=== PATIENT | female | born 1980 | race African-American/Black ===

== ENCOUNTER 2016-11-11 02:08 | Inpatient (IN) | payer SELFPAY ==
[~2016-11-11] VITALS: Ht 171.4 cm; Wt 58.5 kg
[2016-11-11] MEDS ORDERED: ONDANSETRON HCL 4MG/2ML VIAL IV STA (02:18)
[2016-11-11] MEDS ORDERED: FAMOTIDINE 20MG/2ML VIAL IV STA (02:18)
[2016-11-11] MEDS ORDERED: MORPHINE SULFATE 4 MG/ML CPJ (NOT FOR IM USE) IV STA (02:18)
[2016-11-11] MEDS ORDERED: SODIUM CHLORIDE 0.9% 1,000 ML IV ONE ×2 (02:18→03:04)
[2016-11-11 02:47] LABS: BASOPHILS % 0.3 % (0.0-2.0); EOSINOPHILS % 2.7 % (0.0-5.0); HEMATOCRIT. 37.5 % (36.0-48.0); HEMOGLOBIN. 12.5 g/dL (12.0-16.0); LYMPHOCYTES % 32.8 % (20.0-50.0); MEAN CORPUSCULAR HEMOGLOBIN 29.9 pg (28.0-32.0); MEAN CORPUSCULAR VOLUME 89.4 fL (81.0-99.0); MEAN PLATELET VOLUME 8.2 fl (7.4-10.4); NEUTROPHILS % 60.2 % (40.0-76.0); PLATELET 322 x1000/uL (130-400); RED BLOOD CELL COUNT 4.19 mill/uL (4.2-5.4); RED CELL DISTRIBUTION WIDTH 13.3 % (11.6-14.6)
[2016-11-11 02:53] LABS: CHLORIDE 105 mEq/L (98-107)
[2016-11-11 02:55] LABS: HCG SCREEN NEGATIVE
[2016-11-11 03:02] LABS: CARBON DIOXIDE 23 mEq/L (21-32); ETHANOL BLOOD < 10 mg/dL
[2016-11-11] MEDS ORDERED: SODIUM CHLORIDE 0.9% 1000ML BAG (SEPSIS BOLUS) IV ONE ×2 (03:15→05:00)
[2016-11-11] MEDS ORDERED: METRONIDAZOLE 500 MG PREMIX 100 ML IV ONE (05:00)
[2016-11-11] MEDS ORDERED: LEVOFLOXACIN 750MG PREMIX 150 ML IV ONE (05:00)
[2016-11-11] MEDS ORDERED: DOCUSATE SODIUM 100MG CAPSULE PO PRN (08:45)
[2016-11-11] MEDS ORDERED: NA PHOS,M-B/NA PHOS,DI-BA ENEMA 118ML PR PRN (08:45)
[2016-11-11] MEDS ORDERED: DIPHENHYDRAMINE 50MG/ML VIAL IV PRN (08:45)
[2016-11-11] MEDS ORDERED: GUAIFENESIN 200MG/10ML SUGAR FREE UDC PO PRN (08:45)
[2016-11-11] MEDS ORDERED: MORPHINE SULFATE 2 MG/ML CPJ (NOT FOR IM USE) IV PRN (08:45)
[2016-11-11] MEDS ORDERED: IPRATROPIUM/ALBUTEROL 0.5-3(2.5)MG/3ML NEB INH PRN (08:45)
[2016-11-11] MEDS ORDERED: CLONIDINE 0.1MG TABLET PO PRN (08:45)
[2016-11-11] MEDS: ONDANSETRON HCL 4MG/2ML VIAL IV PRN ×2 (08:56→17:18)
[2016-11-11 08:58] LABS: CLARITY URINE CLEAR (CLEAR); COLOR URINE YELLOW (YELLOW); GLUCOSE URINE NEGATIVE (NEGATIVE); KETONES URINE NEGATIVE (NEGATIVE); LEUKOCYTE ESTERASE URINE 1+ (NEGATIVE); NITRITE URINE NEGATIVE (NEGATIVE); OCCULT BLOOD URINE 3+ (NEGATIVE); PH URINE 6.5 (4.5-8.0); PROTEIN URINE NEGATIVE (NEGATIVE); SPECIFIC GRAVITY URINE 1.017 (1.005-1.030)
[2016-11-11 09:20] LABS: *AMPHETAMINES SCREEN URINE NEGATIVE (NEGATIVE); *BARBITURATES SCREEN URINE NEGATIVE (NEGATIVE); *BENZODIAZEPINES SCREEN URINE NEGATIVE (NEGATIVE); *COCAINE SCREEN URINE NEGATIVE (NEGATIVE); CANNABINOID URINE SCREEN NEGATIVE (NEGATIVE); METHADONE URINE SCREEN NEGATIVE (NEGATIVE); PHENCYCLIDINE URINE SCREEN NEGATIVE (NEGATIVE)
[2016-11-11 09:25] LABS: OPIATES URINE SCREEN PRESUMTIVE POSITIVE (NEGATIVE)
[2016-11-11 10:30] VITALS: BP 99/64
[2016-11-11 10:31] VITALS: BP 99/64
[2016-11-11 12:00] VITALS: BP 93/58
[2016-11-11] MEDS ORDERED: PIPERACILLIN/TAZ 2.25G PREMIX 50 ML IV SCH (12:00)
[2016-11-11] MEDS ORDERED: MORPHINE SULFATE 4 MG/ML CPJ (NOT FOR IM USE) IV PRN (12:55)
[2016-11-11] MEDS: SODIUM CHLORIDE 0.45% 1,000 ML IV SCH (13:16)
[2016-11-11] MEDS: PIPERACILLIN/TAZ 3.375G PREMIX 50 ML IV SCH ×3 (13:16→21:17)
[2016-11-11 15:01] LABS: CREATINE KINASE 51 IU/L (26-192); TROPONIN I < 0.02 ng/mL (0.00-0.04)
[2016-11-11 16:00] VITALS: BP 103/72
[2016-11-11] MEDS: SODIUM CHLORIDE 0.9% INJ 3ML FLUSH IVF SCH ×2 (17:18→21:19)
[2016-11-11 20:00] VITALS: BP 97/68
[2016-11-11 22:58] LABS: CREATINE KINASE 47 IU/L (26-192); TROPONIN I < 0.02 ng/mL (0.00-0.04)
[2016-11-12] VITALS: BP 92/59
[2016-11-12] MEDS: SODIUM CHLORIDE 0.45% 1,000 ML IV SCH (00:20)
[2016-11-12 04:00] VITALS: BP 97/62
[2016-11-12] MEDS: SODIUM CHLORIDE 0.9% INJ 3ML FLUSH IVF SCH ×2 (06:32→14:41)
[2016-11-12] MEDS: PIPERACILLIN/TAZ 3.375G PREMIX 50 ML IV SCH ×2 (06:32→14:41)
[2016-11-12] MEDS: HYDROCODONE/ACETAMINOPHEN 5/325MG TABLET PO PRN ×2 (06:42→12:48)
[2016-11-12 07:28] LABS: BASOPHILS % 0.1 % (0.0-2.0); EOSINOPHILS % 3.9 % (0.0-5.0); HEMATOCRIT. 30.3 % (36.0-48.0); HEMOGLOBIN. 10.4 g/dL (12.0-16.0); LYMPHOCYTES % 32.9 % (20.0-50.0); MEAN CORPUSCULAR HEMOGLOBIN 30.3 pg (28.0-32.0); MEAN CORPUSCULAR VOLUME 88.2 fL (81.0-99.0); MEAN PLATELET VOLUME 8.5 fl (7.4-10.4); MONOCYTES % 5.1 % (2.0-8.0); PLATELET 210 x1000/uL (130-400); RED BLOOD CELL COUNT 3.43 mill/uL (4.2-5.4); RED CELL DISTRIBUTION WIDTH 13.5 % (11.6-14.6)
[2016-11-12 08:07] LABS: CARBON DIOXIDE 24 mEq/L (21-32); CHLORIDE 107 mEq/L (98-107)
[2016-11-12 08:11] VITALS: BP 113/72
[2016-11-12 12:00] VITALS: BP 100/67
[2016-11-12] MEDS ORDERED: METR250T PO (12:22)
[2016-11-12] MEDS ORDERED: LEVO500T2 PO (12:22)
[2016-11-12 14:51] VITALS: BP 100/67
[2016-11-16 13:09] LABS: ANTI-MYELOPEROXIDASE AB < 9.0 U/mL (0.0-9.0); ANTI-PROTEINASE 3 ABS < 3.5 U/mL (0.0-3.5)
[2016-11-17 10:12] LABS: ATYPICAL P-ANCA <1:20 titer (Neg:<1:20); CYTOPLASMIC C-ANCA <1:20 titer (Neg:<1:20); PERINUCLEAR P-ANCA <1:20 titer (Neg:<1:20)
== END 2016-11-12 15:45 | disposition home or self-care (01) | DRG 249 ==
LOC: ER 02:08 → 6EST 05:13 → ENRESERV 09:52
PROVIDERS: ADMIT Family Medicine; ATTEND Family Medicine
DX: K52.9 Noninfective gastroenteritis and colitis, unspecified (principal); E87.2 Acidosis; K59.00 Constipation, unspecified; N80.9 Endometriosis, unspecified; Z82.49 Family history of ischemic heart disease and other diseases of the circulatory system; Z88.8 Allergy status to other drugs, medicaments and biological substances
CPT/HCPCS: 36415; 74176; 80053; 80305; 81001; 82550; 83520; 83605; 83690; 84484; 84703; 85025; 86256; 87040; 87086; 96361; 96365; 96366; 96375; 96376; 99291; G0482; J1956; J2270; J2405; J2543; J3490; J7030

== ENCOUNTER 2016-11-18 20:56 | Emergency (ER) | payer SELFPAY ==
[~2016-11-18 20:56] MED LIST: LEVO500T2 PO; METR250T PO
== END 2016-11-18 22:30 | disposition left against medical advice (07) ==
LOC: ER 20:56
DX: Z53.21 Procedure and treatment not carried out due to patient leaving prior to being seen by health care provider (principal)